=== PATIENT | male | born 1995 | race Hispanic/Latino ===

== ENCOUNTER 2018-08-23 08:45 | Emergency (ER) | payer OTHER ==
--- NOTE | 2018-08-23 09:41 | RAD ---
RADIOGRAPH CHEST 1 VIEW: Date: 08/23/18 Time: 0905 HOURS HISTORY: 23-year-old male status post acute blunt trauma to the chest. COMPARISON: 02/15/17. FINDINGS: New findings of mild interstitial-alveolar pulmonary densities in the bilateral mid lung zones. Endot mitul tube distal tip at mid to lower thoracic trachea. Bilateral large caliber chest tubes. This i s a supine image, which would be insensitive for pneumothorax detection. Cardiomediastinal silhouette within normal limits for AP supine view. There is a minimally displaced, acute, traumatic fracture o f the lateral aspect of the left 5th rib. Small caliber short catheter overlies the left apex. IMPRESSION: 1. Intubation. 2. Bilateral chest tubes. 3. Nonspecific mild bilateral pulmonary densities. 4. Acute, traumatic left rib fracture. REBECA [] POS: ABISAI
[2018-08-23] MEDS ORDERED: Calcium Chloride 1 GM/10 ML Abboject SYRINGE ONE (15:00)
[2018-08-23] MEDS ORDERED: Sodium Bicarb 50 MEQ/50 ML Abboject 8.4% SYRINGE ONE (15:00)
[2018-08-23] MEDS ORDERED: EPINEPHrine 1 MG/10 ML Abboject SYRINGE ONE (15:00)
== END 2018-08-23 09:05 | disposition expired ==
LOC: EDBD 08:45 → ERS 08:45
DX: S27.0XXA Traumatic pneumothorax, initial encounter (principal); J96.91 Respiratory failure, unspecified with hypoxia; W20.8XXA Other cause of strike by thrown, projected or falling object, initial encounter
CPT/HCPCS: 31500; 32551; 36430; 51702; 71045; 86850; 86900; 86901; 92950; 96374; 96375; G0390; J0171; P9016; P9048